=== PATIENT | female | born 1955 | race Caucasian/White ===

== ENCOUNTER 2018-01-06 16:22 | Emergency (ER) | payer OTHER ==
--- NOTE | 2018-01-06 17:10 | RAD REPORT ---
EXAM DESCRIPTION: RAD - Ribs Bilateral W/Chest - 01/06/2018 5:02 pm CLINICAL HISTORY: Chest pain FINDINGS: Cortical irregularity involves the anterior right seventh rib equivocal for a nondisplaced fracture A left rib fracture is not seen Lungs are clear. Heart is normal size
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
== END 2018-01-06 17:31 | disposition home or self-care (01) ==
LOC: ER 16:22
DX: S22.31XA Fracture of one rib, right side, initial encounter for closed fracture (principal); F31.9 Bipolar disorder, unspecified; X58.XXXA Exposure to other specified factors, initial encounter; Y93.89 Activity, other specified; Y92.9 Unspecified place or not applicable; Z88.5 Allergy status to narcotic agent
CPT/HCPCS: 71111; 99283

== ENCOUNTER 2018-10-14 00:31 | Emergency (ER) | payer OTHER ==
[2018-10-14] MEDS ORDERED: ETOMIDATE 20 MG/10 ML VIAL IV ONE (01:16)
[2018-10-14] MEDS ORDERED: MIDAZOLAM HCL 2 MG/2 ML INJ ONE (01:16)
[2018-10-14] MEDS ORDERED: NA CHLORIDE 0.9% 1,000 ML ONE (01:17)
[2018-10-14 01:44] LABS: Absolute Lymphocytes (CBC) 1.7 K/uL (0.7-4.9); Absolute Monocytes 0.6 K/uL (0.1-1.3); Eosinophils % 3.7 % (0-4.4); Lymphocytes % 25.7 % (15.3-44.8); MPV 8.7 fL (7.6-11.3); Monocytes % 8.4 % (3.3-12.3); RBC Red Blood Cell Count 4.04 M/uL (3.86-4.86)
--- NOTE | 2018-10-14 01:52 | ER ---
Nurse's Notes [facility] Name: Zhane Hwang Age: 62 yrs Sex: Female : 1955 Arrival Date: 10/14/2018 Time: 00:32 Bed 7 Private MD: Diagnosis: Colles' fracture of right radius-reduced;Fall due to bumping against object Presentation: 10/14 00:34 Presenting complaint: Patient states: I kind of slipped when I was walking and I fell ed1 on my wrist. Transition of care: patient was not received from another setting of care. Onset of symptoms was October 14, 2018. Risk Assessment: Do you want to hurt yourself or someone else? Patient reports no desire to harm self or others. Initial Sepsis Screen: Does the patient meet any 2 criteria? No. Patient's initial sepsis screen is negative. Does the patient have a suspected source of infection? No. Patient's initial sepsis screen is negative. Care prior to arrival: None. 00:34 Method Of Arrival: Ambulatory ed1 00:34 Acuity: MONIQUE 2 ed1 Triage Assessment: 00:36 General: Appears in no apparent distress. Behavior is calm, cooperative, Smells of ed1 alcohol. Pain: Complains of pain in left wrist Pain currently is 10 out of 10 on a pain scale. Musculoskeletal: Circulation, motion, and sensation intact. Range of motion: limited in left wrist Bony deformity noted of left wrist Swelling present in left wrist. Injury Description: N/A. Historical: - Allergies: 00:36 No Known Allergies; ed1 - Home Meds: 00:36 None [Active]; ed1 - PMHx: 00:36 None; ed1 - PSHx: 00:36 Brain surgery; Hysterectomy; ed1 - Immunization history:: Adult Immunizations up to date. - Social history:: Smoking status: Patient/guardian denies using tobacco, Patient uses alcohol, occasionally. - Ebola Screening: : Patient negative for fever greater than or equal to 101.5 degrees Fahrenheit, and additional compatible Ebola Virus Disease symptoms Patient denies exposure to infectious person Patient denies travel to an Ebola-affected area in the 21 days before illness onset No symptoms or risks identified at this time. - Family history:: not pertinent. Screenin:45 Abuse screen: Denies threats or abuse. Denies injuries from another. Nutritional aa1 screening: No deficits noted. Tuberculosis screening: No symptoms or risk factors identified. Fall Risk Fall in past 12 months (25 points). Assessment: 00:45 General: Appears in no apparent distress. uncomfortable, Behavior is calm, cooperative, aa1 appropriate for age. Pain: Complains of pain in left wrist. Neuro: Level of Consciousness is awake, alert, obeys commands, Oriented to person, place, time, situation, Moves all extremities. Respiratory: Airway is patent Respiratory effort is even, unlabored, Respiratory pattern is regular, symmetrical. GI: No signs and/or symptoms were reported involving the gastrointestinal system. : No signs and/or symptoms were reported regarding the genitourinary system. EENT: No signs and/or symptoms were reported regarding the EENT system. Derm: Skin is intact, is healthy with good turgor, Skin is pink, warm \\T\\ dry. Musculoskeletal: Circulation, motion, and sensation intact. Capillary refill < 3 seconds, Range of motion: limited in left wrist Bony deformity noted of left wrist. 01:41 Reassessment: Patient appears in no apparent distress at this time. Patient and/or aa1 family updated on plan of care and expected duration. Pain level reassessed. Patient is alert, oriented x 3, equal unlabored respirations, skin warm/dry/pink. ERP at bedside for moderate sedation and reduction of displaced Colles fracture. See moderate sedation flow sheet for further documentation. 02:38 Reassessment: Patient appears in no apparent distress at this time. Patient and/or aa1 family updated on plan of care and expected duration. Pain level reassessed. Patient is alert, oriented x 3, equal unlabored respirations, skin warm/dry/pink. radiology at [facility] for repeat post-reduction x-ray. D/C pending. 02:50 Reassessment: Patient appears in no apparent distress at this time. Patient is alert, aa1 oriented x 3, equal unlabored respirations, skin warm/dry/pink. States, "I'm still fucking hurting as much as I was when I came in here and y'all gave me some aspirin and slapped a bandage on me. I could have done that at home myself with a fucking towel." Pt refusing to sign discharge papers and states that she does not want her paperwork or prescription. States, "I'll go find a fucking drug dealer and get some drugs myself." Pt then states to male staff member, "I hope you break your fucking constantino and it hurts." Pt walked out to [employer] to leave, no family present at this time. Informed pt to wait in [facility] and we would contact her family to get her. Pt refusing to stay in the facility and left the facility and began walking out to the parking lot. Pt again asked to stay until her family arrives and she refused. MAYRA notified that pt left facility intoxicated and there is a concern for her safety. DP officer en route to facility for patient. Vital Signs: 00:36 BP 130 / 70; Pulse 87; Resp 20; Temp 98.4(TE); Pulse Ox 93% on R/A; Weight 77.11 kg; ed1 Height 5 ft. 4 in. (162.56 cm); Pain 10/10; 01:41 BP 105 / 87; Pulse 85; Resp 22; Pulse Ox 100% on 2 lpm NC; aa1 02:30 BP 122 / 75; Pulse 83; Resp 16; Pulse Ox 96% on R/A; aa1 00:36 Body Mass Index 29.18 (77.11 kg, 162.56 cm) ed1 ED Course: 00:32 Patient arrived in ED. am2 00:35 Triage completed. ed1 00:36 Arm band placed on right wrist. ed1 00:41 Emily Wilder, RN is Primary Nurse. aa1 00:45 Patient has correct armband on for positive identification. Bed in low position. Call aa1 light in reach. Pulse ox on. NIBP on. Pillow given. Ice pack to injury. Verbal reassurance given. 00:53 Adrian Linda MD is Attending Physician. sonia 01:08 Wrist Left 2 View In Process Unspecified. EDMS 01:08 X-ray completed. Portable x-ray completed in exam room. Patient tolerated procedure mh1 well. 01:12 Inserted saline lock: 20 gauge in right hand, using aseptic technique. Blood collected. tl2 01:44 Assist provider with reduction of left wrist using manipulation, Set up for procedure. aa1 Performed by Adrian Linda MD Immobilized with orthoglass splint Patient tolerated well. 01:51 Arsalan Reynoso MD is Referral Physician. [facility] 02:00 X-ray completed. Portable x-ray completed in exam room. Patient tolerated procedure mh1 well. 02:01 Wrist Left (2 View) XRAY: post reduction In Process Unspecified. EDMS 02:48 IV discontinued, intact, bleeding controlled, No redness/swelling at site. Pressure aa1 dressing applied. Administered Medications: 01:30 Drug: NS 0.9% 1000 ml Route: IV; Rate: 1 bolus; Site: right hand; aa1 01:41 Drug: Versed 2 mg Route: IVP; Site: right hand; aa1 01:41 Drug: Etomidate 10 mg Route: IVP; Site: right hand; aa1 02:12 Drug: [place] 10 mg-325 mg 1 tabs Route: PO; aa1 02:13 Drug: fentaNYL (PF) 25 mcg Route: IVP; Site: right hand; aa1 02:19 Not Given (Physician Discretion): Etomidate 10 mg IVP once aa1 02:25 Drug: fentaNYL (PF) 25 mcg Route: IVP; Site: right hand; aa1 Outcome: 01:51 Discharge ordered by . [facility] 02:58 Patient left the ED. aa1 Signatures: Dispatcher [employer] EDMS Emily Wilder RN RN aa1 Adrian Linda MD MD cha Harvey, [facility] Annette No RN RN ed1 Lucy Paige RN RN 2 Nicol Elizabeth 2
--- NOTE | 2018-10-14 01:52 | EDPHYS ---
Physician Documentation [facility] Name: Zhane Hwang Age: 62 yrs Sex: Female : 1955 Arrival Date: 10/14/2018 Time: 00:32 Bed 7 Private MD: Adrian Junior HPI: 10/14 01:01 This 62 yrs old Female presents to ER via Ambulatory with complaints of Wrist sonia Injury. 01:01 The patient or guardian reports decreased range of motion, deformity, injury, pain. The sonia complaints affect the left wrist diffusely. Context: The problem was sustained at home. Onset: The symptoms/episode began/occurred just prior to arrival. Modifying factors: The symptoms are alleviated by holding still, ice/coldpack to affected area. Associated signs and symptoms: The patient has no apparent associated signs or symptoms. Compartment Syndrome negative for. The patient has not experienced similar symptoms in the past. Historical: - Allergies: 00:36 No Known Allergies; ed1 - Home Meds: 00:36 None [Active]; ed1 - PMHx: 00:36 None; ed1 - PSHx: 00:36 Brain surgery; Hysterectomy; ed1 - Immunization history:: Adult Immunizations up to date. - Social history:: Smoking status: Patient/guardian denies using tobacco, Patient uses alcohol, occasionally. - Ebola Screening: : Patient negative for fever greater than or equal to 101.5 degrees Fahrenheit, and additional compatible Ebola Virus Disease symptoms Patient denies exposure to infectious person Patient denies travel to an Ebola-affected area in the 21 days before illness onset No symptoms or risks identified at this time. - Family history:: not pertinent. ROS: 01:01 Constitutional: Negative for fever, chills, and weight loss, Eyes: Negative for injury, sonia pain, redness, and discharge, ENT: Negative for injury, pain, and discharge, Neck: Negative for injury, pain, and swelling, Cardiovascular: Negative for chest pain, palpitations, and edema, Respiratory: Negative for shortness of breath, cough, wheezing, and pleuritic chest pain, Abdomen/GI: Negative for abdominal pain, nausea, vomiting, diarrhea, and constipation, Back: Negative for injury and pain, : Negative for injury, bleeding, discharge, and swelling, Skin: Negative for injury, rash, and discoloration, Neuro: Negative for headache, weakness, numbness, tingling, and seizure, Psych: Negative for depression, anxiety, suicide ideation, homicidal ideation, and hallucinations, Allergy/Immunology: Negative for hives, rash, and allergies, Endocrine: Negative for neck swelling, polydipsia, polyuria, polyphagia, and marked weight changes, Hematologic/Lymphatic: Negative for swollen nodes, abnormal bleeding, and unusual bruising. 01: MS/extremity: Positive for decreased range of motion, pain, swelling, tenderness, of the left wrist. Exam: 01:01 Constitutional: This is a well developed, well nourished patient who is awake, alert, sonia and in no acute distress. Head/Face: Normocephalic, atraumatic. Eyes: Pupils equal round and reactive to light, extra-ocular motions intact. Lids and lashes normal. Conjunctiva and sclera are non-icteric and not injected. Cornea within normal limits. Periorbital areas with no swelling, redness, or edema. ENT: Nares patent. No nasal discharge, no septal abnormalities noted. Tympanic membranes are normal and external auditory canals are clear. Oropharynx with no redness, swelling, or masses, exudates, or evidence of obstruction, uvula midline. Mucous membranes moist. Neck: Trachea midline, no thyromegaly or masses palpated, and no cervical lymphadenopathy. Supple, full range of motion without nuchal rigidity, or vertebral point tenderness. No Meningismus. Chest/axilla: Normal chest wall appearance and motion. Nontender with no deformity. No lesions are appreciated. Cardiovascular: Regular rate and rhythm with a normal S1 and S2. No gallops, murmurs, or rubs. Normal PMI, no JVD. No pulse deficits. Respiratory: Lungs have equal breath sounds bilaterally, clear to auscultation and percussion. No rales, rhonchi or wheezes noted. No increased work of breathing, no retractions or nasal flaring. Abdomen/GI: Soft, non-tender, with normal bowel sounds. No distension or tympany. No guarding or rebound. No evidence of tenderness throughout. Back: No spinal tenderness. No costovertebral tenderness. Full range of motion. Female : Normal external genitalia. Skin: Warm, dry with normal turgor. Normal color with no rashes, no lesions, and no evidence of cellulitis. Neuro: Awake and alert, GCS 15, oriented to person, place, time, and situation. Cranial nerves II-XII grossly intact. Motor strength 5/5 in all extremities. Sensory grossly intact. Cerebellar exam normal. Normal gait. Psych: Awake, alert, with orientation to person, place and time. Behavior, mood, and affect are within normal limits. 01:01 Musculoskeletal/extremity: Extremities: noted in the dorsal aspect of left wrist and palmar aspect of left wrist: decreased ROM, pain. Vital Signs: 00:36 BP 130 / 70; Pulse 87; Resp 20; Temp 98.4(TE); Pulse Ox 93% on R/A; Weight 77.11 kg; ed1 Height 5 ft. 4 in. (162.56 cm); Pain 10/10; 01:41 BP 105 / 87; Pulse 85; Resp 22; Pulse Ox 100% on 2 lpm NC; aa1 02:30 BP 122 / 75; Pulse 83; Resp 16; Pulse Ox 96% on R/A; aa1 00:36 Body Mass Index 29.18 (77.11 kg, 162.56 cm) ed1 MDM: 00:53 Patient medically screened. [facility] 01:01 Data reviewed: vital signs, nurses notes, lab test result(s), radiologic studies, plain sonia films. 10/14 01:00 Order name: CBC with Diff; Complete Time: 02:09 [facility] 10/14 01:00 Order name: Comprehensive Metabolic Panel; Complete Time: 02:09 [facility] 10/14 01:07 Order name: Wrist Left 2 View EDAK 10/14 01:36 Order name: Wrist Left (2 View) XRAY: post reduction [facility] 10/14 01:00 Order name: Ice pack; Complete Time: 01:01 [facility] 10/14 01:00 Order name: Splint; Complete Time: 02:19 [facility] 10/14 02:09 Order name: PO challenge: juice; Complete Time: 02:19 [facility] Administered Medications: 01:30 Drug: NS 0.9% 1000 ml Route: IV; Rate: 1 bolus; Site: right hand; aa1 01:41 Drug: Versed 2 mg Route: IVP; Site: right hand; aa1 01:41 Drug: Etomidate 10 mg Route: IVP; Site: right hand; aa1 02:12 Drug: Star 10 mg-325 mg 1 tabs Route: PO; aa1 02:13 Drug: fentaNYL (PF) 25 mcg Route: IVP; Site: right hand; aa1 02:19 Not Given (Physician Discretion): Etomidate 10 mg IVP once aa 02:25 Drug: fentaNYL (PF) 25 mcg Route: IVP; Site: right hand; [facility] Disposition: 10/14/18 01:51 Discharged to Home. Impression: Colles' fracture of right radius - reduced, Fall due to bumping against object. - Condition is Stable. - Discharge Instructions: Alcohol Intoxication, Colles Fracture, Alcohol Intoxication, [id number], Fall Prevention in the Home, [id number]. - Prescriptions for Tylenol- Codeine #3 300-30 mg Oral Tablet - take 2 tablet by ORAL route every 6 hours As needed; 30 tablet. - Medication Reconciliation Form, Thank You Letter, Antibiotic Education, Prescription Opioid Use form. - Follow up: Private Physician; When: 2 - 3 days; Reason: Recheck today's complaints, Continuance of care, Re-evaluation by your physician. Follow up: Arsalan Reynoso; When: 2 - 3 days; Reason: Recheck today's complaints, Continuance of care, Re-evaluation by your physician. - Problem is new. - Symptoms have improved. Signatures: Dispatcher [employer] [facility] Emily Wilder, RN RN aa1 Adrian Linda MD MD cha Riggs, Erika, RN RN ed1 Corrections: (The following items were deleted from the chart) 01:07 00:42 Wrist Left 3 View+RAD.RAD.BRZ ordered. [facility] EDMS 02:58 01:51 10/14/2018 01:51 Discharged to Home. Impression: Colles' fracture of right radius aa1 - reduced; Fall due to bumping against object. Condition is Stable. Discharge Instructions: Colles Fracture, Fall Prevention in the Home, [id number]. Prescriptions for Tylenol-Codeine #3 300-30 mg Oral Tablet - take 2 tablet by ORAL route every 6 hours As needed; 30 tablet. and Forms are Medication Reconciliation Form, Thank You Letter, Antibiotic Education, Prescription Opioid Use. Follow up: Private Physician; When: 2 - 3 days; Reason: Recheck today's complaints, Continuance of care, Re-evaluation by your physician. Follow up: Arsalan Reynoso; When: 2 - 3 days; Reason: Recheck today's complaints, Continuance of care, Re-evaluation by your physician. Problem is new. Symptoms have improved. sonia
[2018-10-14 02:07] LABS: Albumin 3.6 g/dL (3.4-5.0); Bilirubin Total 0.3 mg/dL (0.2-1.0); Potassium 3.4 mmol/L (3.5-5.1); Protein, Total 7.3 g/dL (6.4-8.2)
[2018-10-14] MEDS ORDERED: HYDROCODONE/APAP 10/325 TAB ONE (02:22)
[2018-10-14] MEDS ORDERED: FENTANYL CITR 100 MCG/2 ML ONE (02:23)
--- NOTE | 2018-10-14 11:13 | RAD REPORT ---
EXAM DESCRIPTION: RAD - Wrist Left 2 View - 10/14/2018 2:01 am CLINICAL HISTORY: PAIN Trauma, pain COMPARISON: Wrist Left 2 View dated 10/14/2018 FINDINGS: Distal radius fracture has been reduced within a plaster splint. Bone detail is obscured however alignment is near anatomic. 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
--- NOTE | 2018-10-14 11:14 | RAD REPORT ---
EXAM DESCRIPTION: RAD - Wrist Left 2 View - 10/14/2018 1:08 am CLINICAL HISTORY: DEFORMITY Pain COMPARISON: No comparisons FINDINGS: Distal radius fracture is noted with moderate angulation dorsally. Moderate soft tissue sw elling is evident. Dislocation not seen. 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
== END 2018-10-14 02:58 | disposition home or self-care (01) ==
LOC: ER 00:31
PROC: 0PSJXZZ Reposition Left Radius, External Approach (ICD-10-PCS; principal; 2018-10-14)
DX: S52.532A Colles' fracture of left radius, initial encounter for closed fracture (principal); X58.XXXA Exposure to other specified factors, initial encounter; Y93.9 Activity, unspecified; Y92.009 Unspecified place in unspecified non-institutional (private) residence as the place of occurrence of the external cause
CPT/HCPCS: 36415; 80053; 85025; 96374; 96375; 99284; J2250; J3010; J7030